=== PATIENT | male | born 1975 | race Caucasian/White ===

== ENCOUNTER 2018-11-19 08:53 | Outpatient (RCR) | payer OTHER ==
[~2018-11-19 08:53] MED LIST: DOXYCYCLINE 10100 MG PO; MOTRIN 800800 MG/TAB PO; NO HOME MEDICATIONS; VICODIN 5/5001 UDTAB PO
== END 2019-01-09 | disposition home or self-care (01) ==
LOC: WSOH
DX: S39.012A Strain of muscle, fascia and tendon of lower back, initial encounter (principal); M62.830 Muscle spasm of back; X58.XXXA Exposure to other specified factors, initial encounter; Y93.E9 Activity, other interior property and clothing maintenance; Y92.59 Other trade areas as the place of occurrence of the external cause; Y99.0 Civilian activity done for income or pay; F17.210 Nicotine dependence, cigarettes, uncomplicated; Z79.1 Long term (current) use of non-steroidal anti-inflammatories (NSAID)